=== PATIENT | male | born 1965 | race Caucasian/White ===

== ENCOUNTER 2017-09-15 13:48 | Emergency (ER) | payer BC, MEDICAID ==
[~2017-09-15] VITALS: Ht 180.3 cm; Wt 90.7 kg
[2017-09-15 13:48] VITALS: BP_SYST 143
[2017-09-15 15:10] VITALS: BP_SYST 139
== END 2017-09-15 15:10 | disposition home or self-care (01) ==
LOC: SED 13:48
DX: S62.636A Displaced fracture of distal phalanx of right little finger, initial encounter for closed fracture (principal); I10 Essential (primary) hypertension; F12.10 Cannabis abuse, uncomplicated; Z86.73 Personal history of transient ischemic attack (TIA), and cerebral infarction without residual deficits; W22.8XXA Striking against or struck by other objects, initial encounter; Y93.89 Activity, other specified; Y92.89 Other specified places as the place of occurrence of the external cause; Y99.8 Other external cause status
CPT/HCPCS: 73140-TC; 99284

== ENCOUNTER 2018-02-14 10:26 | Emergency (ER) | payer MEDICAID ==
[~2018-02-14] VITALS: Ht 180.3 cm; Wt 90.7 kg
[2018-02-14 10:26] VITALS: BP_SYST 154
[2018-02-14 10:52] LABS: BASOPHILS # (AUTO) 0.1 K/uL (0.0-0.2); EOSINOPHILS # (AUTO) 0.2 K/uL (0.0-0.4); EOSINOPHILS % (AUTO) 1.8 % (0.0-4.0); HEMATOCRIT 45.8 % (36-54); HEMOGLOBIN 15.2 g/dL (14.0-18.0); LYMPHOCYTES # (AUTO) 1.4 K/uL (1.0-5.5); LYMPHOCYTES % (AUTO) 14.3 % (20.5-51.5); MEAN CORPUSCULAR HEMOGLOBIN 33 pg (27-31); MEAN CORPUSCULAR HGB CONC 33 % (32-36); MEAN CORPUSCULAR VOLUME 99 fL (79.0-98.0); MONOCYTES # (AUTO) 0.7 K/uL (0.0-1.0); MONOCYTES % (AUTO) 7.2 % (1.7-9.3); NEUTROPHILS # (AUTO) 7.4 K/uL (1.8-7.7); NEUTROPHILS % (AUTO) 75.7 % (40.0-70.0); PLATELET COUNT (AUTO) 302 K/uL (130-430); RED BLOOD CELL COUNT(AUTO) 4.65 MIL/uL (4.2-6.2); RED CELL DISTRIBUTION WIDTH 12.6 % (9.0-15.0); WHITE BLOOD COUNT (AUTO) 9.8 K/uL (4.8-10.8)
[2018-02-14 11:06] LABS: CALCIUM 9.5 mg/dL (8.4-11.0); CREATININE 0.98 mg/dL (0.55-1.30); POTASSIUM 3.4 mmol/L (3.5-5.1)
[2018-02-14 11:11] LABS: INR 0.9 (0.80-1.20); PROTHROMBIN TIME 9.6 SECS (9.5-12.5)
[2018-02-14 11:12] LABS: ALBUMIN 3.7 g/dL (3.4-4.8); TOTAL BILIRUBIN 0.5 mg/dL (0.0-1.0)
[2018-02-14 12:05] VITALS: BP_SYST 144
[2018-02-14 14:38] LABS: C-REACTIVE PROTEIN QUANT 12.3 mg/dL (0-0.5)
== END 2018-02-14 11:59 | disposition home or self-care (01) ==
LOC: SED 10:26
DX: M70.42 Prepatellar bursitis, left knee (principal); Y93.89 Activity, other specified; I10 Essential (primary) hypertension; Z86.73 Personal history of transient ischemic attack (TIA), and cerebral infarction without residual deficits
CPT/HCPCS: 36415; 73560-TC; 80053; 85025; 85610-TC; 85730-TC; 86140; 99285

== ENCOUNTER 2018-03-14 07:14 | Emergency (ER) | payer MEDICAID ==
[~2018-03-14] VITALS: Ht 180.3 cm; Wt 99.8 kg
[2018-03-14 07:14] VITALS: BP_SYST 148
[2018-03-14 07:54] LABS: BASOPHILS # (AUTO) 0.1 K/uL (0.0-0.2); BASOPHILS % (AUTO) 0.8 % (0.0-2.0); EOSINOPHILS # (AUTO) 0.1 K/uL (0.0-0.4); EOSINOPHILS % (AUTO) 1.9 % (0.0-4.0); HEMOGLOBIN 13.9 g/dL (14.0-18.0); LYMPHOCYTES # (AUTO) 1.2 K/uL (1.0-5.5); LYMPHOCYTES % (AUTO) 17.1 % (20.5-51.5); MEAN CORPUSCULAR HEMOGLOBIN 32 pg (27-31); MEAN CORPUSCULAR HGB CONC 33 % (32-36); MEAN CORPUSCULAR VOLUME 97 fL (79.0-98.0); MONOCYTES # (AUTO) 0.6 K/uL (0.0-1.0); NEUTROPHILS # (AUTO) 5.1 K/uL (1.8-7.7); NEUTROPHILS % (AUTO) 71.2 % (40.0-70.0); PLATELET COUNT (AUTO) 275 K/uL (130-430); RED BLOOD CELL COUNT(AUTO) 4.34 MIL/uL (4.2-6.2); WHITE BLOOD COUNT (AUTO) 7.1 K/uL (4.8-10.8)
[2018-03-14 08:17] LABS: ANION GAP 10 (5-15); CALCIUM 9.3 mg/dL (8.4-11.0); CHLORIDE 104 mmol/L (98-107); GLUCOSE 110 mg/dL (70-99); POTASSIUM 3.7 mmol/L (3.5-5.1); SODIUM SERUM 141 mmol/L (136-145); UREA NITROGEN, BLOOD 14 mg/dL (8-21)
[2018-03-14 08:19] LABS: GFR AFRICAN AMERICAN 130 mL/min (>90)
[2018-03-14 08:20] LABS: ALANINE AMINOTRANSFERASE 48 U/L (12-78); ALBUMIN 3.5 g/dL (3.4-4.8); ASPARTATE AMINOTRANSFERASE 25 U/L (10-37); TOTAL BILIRUBIN 0.7 mg/dL (0.0-1.0)
[2018-03-14 08:21] LABS: ALCOHOL, BLOOD < 3 mg/dL (<10)
[2018-03-14 08:30] LABS: PROTHROMBIN TIME 10.2 SECS (9.5-12.5)
[2018-03-14 09:13] LABS: BILIRUBIN,URINE NEGATIVE (NEGATIVE); BLOOD, URINE NEGATIVE (NEGATIVE); CLARITY/URINE SL HAZY (CLEAR); COLOR,URINE AMBER (YELLOW); GLUCOSE,URINE NEGATIVE (NEGATIVE); KETONES,URINE 1+ (NEGATIVE); LEUKOCYTE ESTERASE ,URINE NEGATIVE (NEGATIVE); NITRITE, URINE NEGATIVE (NEGATIVE); PH,URINE 5.5 (5.0-8.0); PROTEIN URINE TRACE (NEGATIVE); UROBILINOGEN,URINE 0.2 (0.2-1.0)
[2018-03-14] MEDS ORDERED: LORazepam 2 MG/ML VIAL IVP ONE (09:30)
[2018-03-14] MEDS ORDERED: LORazepam 2 MG/ML VIAL (FOR ER USE) IVP ONE (09:30)
[2018-03-14 09:34] LABS: BACTERIA,URINE FEW /HPF (None Seen); RBC,URINE 0-3 /HPF (0-3); WBC,URINE 0-3 /HPF (0-3)
[2018-03-14 09:35] LABS: MUCUS,URINE 1+ /LPF (None Seen)
[2018-03-14 09:44] LABS: BARBITURATE, URINE NEGATIVE (NEG <=200); BENZODIAZEPINE, URINE NEGATIVE (NEG <=150); CANNABINOID, URINE POSITIVE (NEG <=50); COCAINE, URINE NEGATIVE (NEG <=150); METHAMPHETAMINES SCREEN,URINE POSITIVE (NEG <=500); OPIATE, URINE NEGATIVE (NEG <=100); PHENCYCLIDINE SCREEN,URINE NEGATIVE (NEG <=25); UR TRICYCLIC ANTIDEPRESSANTS NEGATIVE (NEG <=300); URINE AMPHETAMINE POSITIVE (NEG <=500); URINE METHADONE NEGATIVE (NEG <=200); URINE OXYCODONE SCREEN NEGATIVE (NEG <=100); URINE PROPOXYPHENE SCREEN NEGATIVE (NEG <=300)
[2018-03-14 18:40] VITALS: BP_SYST 148
== END 2018-03-14 18:40 | disposition home or self-care (01) ==
LOC: SED 07:14
DX: F32.9 Major depressive disorder, single episode, unspecified (principal); F15.10 Other stimulant abuse, uncomplicated; F14.10 Cocaine abuse, uncomplicated; I10 Essential (primary) hypertension; E78.5 Hyperlipidemia, unspecified; Z72.89 Other problems related to lifestyle; Z86.73 Personal history of transient ischemic attack (TIA), and cerebral infarction without residual deficits
CPT/HCPCS: 36415; 80053; 80307; 81000; 84484; 85025; 85610; 85730; 93005; 96374; 99285; G0482; J2060

== ENCOUNTER 2019-01-28 23:27 | Observation (INO) | payer MEDICAID ==
[~2019-01-28] VITALS: Ht 180.3 cm; Wt 117.9 kg
[2019-01-28 23:30] VITALS: BP_SYST 152
--- NOTE | 2019-01-28 23:31 | NUR ---
ER MD Aviles at bedside for medical evaluation.
--- NOTE | 2019-01-28 23:35 | NUR ---
Patient to ER bed 06 to gown for evaluation. Side rails up. Report given to MAGALY Mai.
--- NOTE | 2019-01-28 23:36 | NUR ---
Patient AOx4, brought to ER via ambulance BLS from home for c/o SOB prior to arrival. Patient states he was in bed and was awaken by sudden onset SOB. Patient states it is hes 3rd episode since last month. Patient states he felt hot and was sweating. Denies CP at this time. On arrival, patient's O2 sat 97% on RA and patient speaking in full sentences. No acute respiratory distress noted. Per patient, hx of CVA x2 and HTN. No other symptoms or complaints.
[2019-01-28] MEDS ORDERED: ASPIRIN 81 MG TAB.CHEW PO ONE (23:45)
--- NOTE | 2019-01-28 23:48 | NUR ---
# 18 gauge angiocath placed to right hand. Use of asceptic technique. Opsite placed over site. Blood return noted. Blood for lab drawn from site. Flushed with 10 cc of normal saline. No evidence of infiltration noted. Patient tolerated well.
[2019-01-29 00:06] LABS: BASOPHILS % (AUTO) 0.2 % (0.0-2.0); EOSINOPHILS # (AUTO) 0.2 K/uL (0.0-0.4); EOSINOPHILS % (AUTO) 3.1 % (0.0-4.0); HEMATOCRIT 42.4 % (36-54); HEMOGLOBIN 14.5 g/dL (14.0-18.0); LYMPHOCYTES # (AUTO) 2.2 K/uL (1.0-5.5); LYMPHOCYTES % (AUTO) 32.8 % (20.5-51.5); MEAN CORPUSCULAR HEMOGLOBIN 33 pg (27-31); MEAN CORPUSCULAR HGB CONC 34 % (32-36); MEAN CORPUSCULAR VOLUME 96 fL (79.0-98.0); MONOCYTES # (AUTO) 0.8 K/uL (0.0-1.0); MONOCYTES % (AUTO) 12.1 % (1.7-9.3); NEUTROPHILS # (AUTO) 3.5 K/uL (1.8-7.7); NEUTROPHILS % (AUTO) 51.8 % (40.0-70.0); PLATELET COUNT (AUTO) 183 K/uL (130-430); RED CELL DISTRIBUTION WIDTH 13.7 % (9.0-15.0); WHITE BLOOD COUNT (AUTO) 6.7 K/uL (4.8-10.8)
[2019-01-29 00:16] LABS: CALCIUM 8.3 mg/dL (8.4-11.0); CREATININE 0.9 mg/dL (0.55-1.30); POTASSIUM 3.3 mmol/L (3.5-5.1)
[2019-01-29 00:20] LABS: PROTHROMBIN TIME 9.7 SECS (9.5-12.5)
[2019-01-29 00:21] LABS: ALBUMIN 3.5 g/dL (3.4-4.8); TOTAL BILIRUBIN 0.1 mg/dL (0.0-1.0)
--- NOTE | 2019-01-29 01:33 | NUR ---
pt resting comfortably in bed. No acute distress, will continue to monitor.
--- NOTE | 2019-01-29 02:28 | NUR ---
patient resting comfortably in hospital bed. No acute distress, will continue to monitor.
--- NOTE | 2019-01-29 02:36 | NUR ---
PT reports he takes no home medications
--- NOTE | 2019-01-29 02:51 | NUR ---
Patient will be admitted to care of Dr. Pedersen, orders given by Dr. Ayon. Admitted to Observation Telemetry unit. Will go to room 135. Belongings list completed. Summary report printed. Report will be given at bedside.
--- NOTE | 2019-01-29 02:52 | NUR ---
Transfer to Telemetry via ACLS protocol. Licensed nurse present. IV present no signs or symptoms of infiltration.
--- NOTE | 2019-01-29 03:03 | NUR ---
ADMIT NOTE Received pt from ER to the floor with a diagnosis of chest pain. Admission process initiated. patient oriented to pain management, safety and call light-teach back done.
[2019-01-29 03:07] VITALS: BP_SYST 141
--- NOTE | 2019-01-29 03:30 | NUR ---
initial notes: pt is awake, alert, oriented x 4. no sob. no pain. stable vital sign. iv lock to right hand gauge 18-intact and patent. assess pt. explain plan of care, medication, ori3nt to room and call light. pt verbalized understanding. needs attended, call light in reach. safety on. will monitor.
[2019-01-29] MEDS ORDERED: ONDANSETRON HCL 4 MG/2 ML VIAL IVP PRN (05:45)
[2019-01-29] MEDS ORDERED: MORPHINE 2 MG/ML INJ. SYRINGE IVP PRN (05:45)
[2019-01-29] MEDS ORDERED: ACETAMINOPHEN 325 MG TABLET PO PRN (05:45)
--- NOTE | 2019-01-29 06:04 | NUR ---
sleeping, comfortable. no pain. no sob and no distress. stable. call light in reach.
--- NOTE | 2019-01-29 07:20 | NUR ---
closing: pt is awake, alert. talking to his cellphone. no pain. no distress. stable. needs attended. call light in reach. will give bedside report to am rn.
[2019-01-29 07:24] LABS: BASOPHILS % (AUTO) 0.3 % (0.0-2.0); EOSINOPHILS # (AUTO) 0.1 K/uL (0.0-0.4); EOSINOPHILS % (AUTO) 2.2 % (0.0-4.0); HEMATOCRIT 42.7 % (36-54); HEMOGLOBIN 14.4 g/dL (14.0-18.0); LYMPHOCYTES # (AUTO) 1.8 K/uL (1.0-5.5); LYMPHOCYTES % (AUTO) 27.7 % (20.5-51.5); MEAN CORPUSCULAR HEMOGLOBIN 33 pg (27-31); MEAN CORPUSCULAR HGB CONC 34 % (32-36); MEAN CORPUSCULAR VOLUME 96 fL (79.0-98.0); MONOCYTES # (AUTO) 0.6 K/uL (0.0-1.0); MONOCYTES % (AUTO) 9.2 % (1.7-9.3); NEUTROPHILS % (AUTO) 60.6 % (40.0-70.0); PLATELET COUNT (AUTO) 184 K/uL (130-430); RED BLOOD CELL COUNT(AUTO) 4.44 MIL/uL (4.2-6.2); WHITE BLOOD COUNT (AUTO) 6.6 K/uL (4.8-10.8)
--- NOTE | 2019-01-29 07:30 | NUR ---
OPENING NOTE Report was endorsed by night nurse. Patient is awake and alert sitting up in bed no signs of any distress, breathing is equal and non labored. Patient educated sports nutritionist light for assistance. Call light is with patient. Patient has no complaints at this time. Patient has all safety precautions in place. Will continue to monitor.
[2019-01-29 08:00] VITALS: BP_SYST 140
[2019-01-29 08:04] LABS: ALANINE AMINOTRANSFERASE 28 U/L (12-78); ALBUMIN 3.4 g/dL (3.4-4.8); ANION GAP 8 (5-15); ASPARTATE AMINOTRANSFERASE 15 U/L (10-37); CALCIUM 8.1 mg/dL (8.4-11.0); CHLORIDE 107 mmol/L (98-107); CREATININE 0.81 mg/dL (0.55-1.30); GLUCOSE 114 mg/dL (70-99); POTASSIUM 3.8 mmol/L (3.5-5.1); SODIUM SERUM 140 mmol/L (136-145); TOTAL BILIRUBIN 0.2 mg/dL (0.0-1.0); UREA NITROGEN, BLOOD 14 mg/dL (8-21)
[2019-01-29 08:11] LABS: GFR AFRICAN AMERICAN 127 mL/min (>90)
[2019-01-29 08:25] LABS: CHOLESTEROL 191 mg/dL (<200); HDL CHOLESTEROL 50 mg/dL (>45); LDL CHOLESTEROL 119 mg/dL (<100); TRIGLYCERIDES 106 mg/dL (30-150)
--- NOTE | 2019-01-29 08:44 | NUR ---
medication/echo Patient is awake and alert sitting up in bed currently having echo done. Patients scheduled medication given as ordered. Patient has call light with him. educated to use for assistance. Patient has no complaints at this time. will continue to monitor.
[2019-01-29] MEDS ORDERED: ASPIRIN 81 MG TAB.CHEW PO SCH (09:00)
--- NOTE | 2019-01-29 09:53 | NUR ---
Nutrition Update Herber Scale 18 noted. Pt admitted for chest pain. Diet: 2 gm Na BMI: 36.3 kg/m2 RD to follow per nutrition care standards. Addendum: 01/29/19 at [address] PLEASE DISREGARD. ENTERED IN ERROR.
--- NOTE | 2019-01-29 10:30 | NUR ---
rn rounding at bedside. Patient is awake and alert no signs of any distress, breathing is equal and non labored. Patient has call light is with patient, educated to use for assistance. Patient has no complaints at this time. will continue to monitor.
[2019-01-29 12:20] VITALS: BP_SYST 147
--- NOTE | 2019-01-29 12:30 | NUR ---
rn rounding Patient is awake and alert no signs of any distress,breathing is equal and non labored. Spouse is at bed side. Patient has no other needs at this time. Patient has all safety precautions in place.Call light is with patient, educated to use for assistance. Patient has no other needs at this time.will continue to monitor.
--- NOTE | 2019-01-29 14:30 | NUR ---
PAGED FOR ORDERS.
--- NOTE | 2019-01-29 14:34 | NUR ---
PAGED FOR ORDERS.
--- NOTE | 2019-01-29 14:48 | NUR ---
At nurses station received orders for consult for cardiology. Patient is resting both eyes closed no signs of any distress, breathing is equal and non labored. Patient has all safety precautions in place. Call light is with patient. will continue to monitor.
[2019-01-29 16:46] VITALS: BP_SYST 140
--- NOTE | 2019-01-29 17:30 | NUR ---
Spoke with Dr. Pedersen informed that Dr. Taylor cleared patient for discharge. Per Dr. Pedersen ok to discharge patient home follow up with primary care physician.Patient made aware. Patient is awake and alert sitting up in bed no signs of any distress,breathing is equal and non labored. no complaints at this time. will continue to monitor.
[2019-01-29 18:03] VITALS: BP_SYST 140
--- NOTE | 2019-01-29 18:18 | NUR ---
discharge Patient is awake and alert. Patient and spouse educated on discharge paper work. Verbalized understanding. Patient has no complaints at this time. Patient's breathing is equal and non labored. Patient's IV catheter removed, catheter intact, applied gauze and tape to insertion site. ID band removed. Patient is refusing to be wheeled out via wheel chair states he can walk. Discharge paper work is with him. spouse is with patient. no other needs at this time.
--- NOTE | 2019-01-30 13:38 | NUR ---
Crm Coordinator: GEOSPATIAL INFORMATION TECHNOLOGIST met with pt. to complete a DCPA. Pt. was freindly and easily participated in this interview.Pt. stated he was hoping to be D/C today and was waiting for a cariologist to evaluate him. Pt. stated he was feeling much better, but his finger was bothering him. 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 He feel as he was walking up the steps and injured his finger. When GEOSPATIAL INFORMATION TECHNOLOGIST asked how much he was drinking, pt. stated he just drinks beer and stated this was 9 months ago. He stated he has been sober eversince. He admitted to been a big beer drinker, in the past participating in 14 different rehabs for alcohol. He has participated in AA. He said he finally got tired of living his life this way. Pt. stated he is involved with a [employer] and particpates in a drug and alcohol ministry each Saturday. Pt. has made connections and stays involved. He stated he did not need any resources from GEOSPATIAL INFORMATION TECHNOLOGIST. Pt. stated he has a referral for a hearing aid. He has been putting this off, but said he is committed to following through with his apppt. Pt. stated he did not have any questions and thanked GEOSPATIAL INFORMATION TECHNOLOGIST who will remain available as needed.
== END 2019-01-29 18:18 | disposition home or self-care (01) ==
LOC: SED 23:27 → STU 01-29 02:44
PROVIDERS: ADMIT Internal Medicine Hospice and Palliative Medicine; ATTEND Internal Medicine Hospice and Palliative Medicine
DX: G47.33 Obstructive sleep apnea (adult) (pediatric) (principal); R06.02 Shortness of breath; E66.01 Morbid (severe) obesity due to excess calories; I10 Essential (primary) hypertension; Z86.73 Personal history of transient ischemic attack (TIA), and cerebral infarction without residual deficits; F12.90 Cannabis use, unspecified, uncomplicated
CPT/HCPCS: 36415 ×2; 71045; 80053 ×2; 80061; 83880; 84484 ×2; 85025 ×2; 85379; 85610; 85730; 93005; 93306; 99285; G0378